=== PATIENT | male | born 1950 | race Caucasian/White ===

== ENCOUNTER 2017-09-02 08:31 | Day surgery (SDC) | payer OTHER ==
[2017-09-02] MEDS ORDERED: NEOSTIGMINE 3 MG/3 ML SYRINGE (11:54)
[2017-09-02] MEDS ORDERED: FENTAnyl 50 MCG/ML VIAL (11:54)
[2017-09-02] MEDS ORDERED: GLYCOPYRROLATE 0.4 MG INJ (11:54)
[2017-09-02] MEDS ORDERED: DEXAMETHASONE 4 MG/ML 1 ML INJ ×2 (11:54→12:52)
[2017-09-02] MEDS ORDERED: LIDOCAINE 2% (SDV) 5 ML INJ (11:54)
[2017-09-02] MEDS ORDERED: MIDAZOLAM 1 MG/ML 2 ML INJ (11:54)
[2017-09-02] MEDS ORDERED: PROPOFOL 20 ML (11:54)
[2017-09-02] MEDS ORDERED: ROCURONIUM 50 MG INJ (11:54)
[2017-09-02] MEDS ORDERED: ONDANSETRON 4 MG INJ ×2 (11:55→12:52)
[2017-09-02] MEDS ORDERED: SUCCINYLCHOLINE CHLORIDE 100 MG/5 ML SYG IV (12:17)
[2017-09-02] MEDS ORDERED: LABETALOL HCL 20MG INJ (12:27)
[2017-09-02] MEDS: BUPIVACAINE 0.25% (MPF) 30 ML INJ (12:51)
[2017-09-02] MEDS: LIDOCAINE 1%/EPI 30 ML INJ (12:52)
[2017-09-02] MEDS: OXYCODONE/ACETAMINOPHEN (10/325) TAB PO (15:55)
== END 2017-09-02 16:15 | disposition home or self-care (01) ==
LOC: SDS 08:31
DX: G56.02 Carpal tunnel syndrome, left upper limb (principal); M18.12 Unilateral primary osteoarthritis of first carpometacarpal joint, left hand; I10 Essential (primary) hypertension; E78.5 Hyperlipidemia, unspecified; E66.9 Obesity, unspecified; Z68.35 Body mass index [BMI] 35.0-35.9, adult
CPT/HCPCS: 25447; 73130-LT